=== PATIENT | male | born 1965 ===

== ENCOUNTER 2018-06-02 16:38 | Inpatient (IN) | payer OTHER ==
[~2018-06-02] VITALS: Ht 167.6 cm; Wt 86.2 kg
--- NOTE | 2018-06-02 17:00 | NUR ---
FYI: Sending facility information [facility] [address] [facility] [place]. [address]
[2018-06-02 17:08] LABS: BASOPHILS # (AUTO) 0.1 K/uL (0.0-8.0); BASOPHILS % (AUTO) 0.9 % (0.0-2.0); EOSINOPHILS # (AUTO) 0.1 K/uL (0.0-0.7); EOSINOPHILS % (AUTO) 1.9 % (0.0-7.0); HEMATOCRIT 39.6 % (36.7-47.1); HEMOGLOBIN 13.5 g/dL (12.5-16.3); LYMPHOCYTES # (AUTO) 2.5 K/uL (20.0-40.0); LYMPHOCYTES % (AUTO) 32.3 % (20.5-51.5); MEAN CORPUSCULAR HEMOGLOBIN 29.5 uug (23.8-33.4); MEAN CORPUSCULAR HGB CONC 34 g/dL (32.5-36.3); MEAN CORPUSCULAR VOLUME 86.8 fL (73.0-96.2); MONOCYTES # (AUTO) 0.6 K/uL (2.0-10.0); MONOCYTES % (AUTO) 8.1 % (0.0-11.0); NEUTROPHILS # (AUTO) 4.3 K/uL (1.8-8.9); NEUTROPHILS % (AUTO) 56.8 % (38.5-71.5); PLATELET COUNT (AUTO) 346 K/uL (152-348); RED BLOOD CELL COUNT(AUTO) 4.57 MIL/uL (4.06-5.63); WHITE BLOOD COUNT (AUTO) 7.6 K/uL (3.6-10.2)
[2018-06-02 17:17] LABS: CREATININE 0.8 mg/dL (0.6-1.3)
[2018-06-02 17:23] LABS: BILIRUBIN,DIRECT 0.1 mg/dL (0.0-0.2); BILIRUBIN,TOTAL 0.2 mg/dL (0.2-1.0); TOTAL PROTEIN, SERUM 7.7 g/dL (6.4-8.2)
--- NOTE | 2018-06-02 18:25 | NUR ---
Pt trans to m/s floor, NAD noted.
[2018-06-02 18:35] VITALS: BP 111/58
--- NOTE | 2018-06-02 19:00 | NUR ---
Patient has no IV because he is here for placement only. DW Charge Nurse. No IVF ordered.
--- NOTE | 2018-06-02 19:30 | NUR ---
Received laying comfortably in bed. No acute distress noted. A/O x 4. Hyperverbal. Patient is on room air. Denies pain or SOB. correction assessment done. Noted closed old heeled wound on the left outer armpit, left Noted left buttock redness and open wound. Pictures are in the chart. Wound care provided; applied hydrogel and mepilex on the sacral would. Noted scratches on bilateral lower extremities because of "the bed at the [facility]". Patient is paraplegic but able to turn and reposition herself. Noted pitting 2+ edema on bilateral foot. Safety initiated. Call light within reach.
[2018-06-02 20:00] VITALS: BP 122/82
[2018-06-02] MEDS ORDERED: ONDANSETRON 4 MG/2 ML VIAL IV PRN (20:45)
[2018-06-02] MEDS ORDERED: ACETAMINOPHEN 325 MG TABLET PO PRN (20:45)
[2018-06-02] MEDS ORDERED: MAGNESIUM HYDROXIDE 30 ML LIQUID UDC PO PRN (20:45)
--- NOTE | 2018-06-02 20:45 | NUR ---
Dr. Durán at bedside.
[2018-06-02] MEDS: ALPRAZOLAM 0.5 MG TABLET PO PRN (22:21)
[2018-06-02] MEDS: DOCUSATE SODIUM 100 MG CAPSULE PO SCH (22:21)
[2018-06-02 23:27] LABS: *BILIRUBIN,URIN NEGATIVE (NEGATIVE); *BLOOD, URINE NEGATIVE (NEGATIVE); *CLARITY,URINE CLEAR (CLEAR); *COLOR,URINE YELLOW (YELLOW); *KETONES,URINE NEGATIVE (NEGATIVE); *PROTEIN,URINE NEGATIVE (NEGATIVE); *UROBILINOGEN,URINE 0.2 E.U./dl (NORMAL); LEUKOCYTE ESTERASE ,URINE TRACE (NEGATIVE); NITRITE, URINE NEGATIVE (NEGATIVE); UGLUCOSE NEGATIVE (NEGATIVE)
[2018-06-02 23:33] LABS: BACTERIA,URINE NONE SEEN /HPF (NONE SEEN); MUCUS,URINE FEW /LPF (0-FEW); RBC,URINE 0-3 /HPF (0-3); SQUAMOUS EPITHELIAL CELL,UR FEW /HPF (NONE SEEN); WBC,URINE 0-3 /HPF (0-3)
[2018-06-03] MEDS ORDERED: OMEP20CA10 PO (03:17)
[2018-06-03] MEDS ORDERED: METO25TA6 PO (03:25)
[2018-06-03] MEDS ORDERED: GEMF600T4 PO (03:25)
[2018-06-03] MEDS ORDERED: BUSP5TAB3 PO (03:25)
[2018-06-03 04:00] VITALS: BP 101/63
--- NOTE | 2018-06-03 05:36 | NUR ---
No changes t/o shift. Afebrile. Wound care provided. Turned and repositioned Q2H. Safety and comfort measures maintained t/o shift. Good urine output. All meds given as ordered. All needs met.
[2018-06-03 06:10] LABS: BASOPHILS # (AUTO) 0.1 K/uL (0.0-8.0); BASOPHILS % (AUTO) 1.3 % (0.0-2.0); EOSINOPHILS # (AUTO) 0.2 K/uL (0.0-0.7); EOSINOPHILS % (AUTO) 2.5 % (0.0-7.0); HEMOGLOBIN 12.8 g/dL (12.5-16.3); LYMPHOCYTES # (AUTO) 2.3 K/uL (20.0-40.0); LYMPHOCYTES % (AUTO) 32.2 % (20.5-51.5); MEAN CORPUSCULAR HEMOGLOBIN 28.8 uug (23.8-33.4); MEAN CORPUSCULAR HGB CONC 34 g/dL (32.5-36.3); MEAN CORPUSCULAR VOLUME 85.7 fL (73.0-96.2); MONOCYTES # (AUTO) 0.6 K/uL (2.0-10.0); MONOCYTES % (AUTO) 8.7 % (0.0-11.0); NEUTROPHILS # (AUTO) 3.9 K/uL (1.8-8.9); NEUTROPHILS % (AUTO) 55.3 % (38.5-71.5); PLATELET COUNT (AUTO) 319 K/uL (152-348); RED BLOOD CELL COUNT(AUTO) 4.44 MIL/uL (4.06-5.63); WHITE BLOOD COUNT (AUTO) 7.1 K/uL (3.6-10.2)
[2018-06-03] MEDS: PANTOPRAZOLE SODIUM 40 MG TABLET.DR PO SCH (06:18)
--- NOTE | 2018-06-03 06:19 | NUR ---
ANTHONY Cummings at bedside giving a bed bath. Will continue to monitor.
[2018-06-03 06:30] LABS: BILIRUBIN,TOTAL 0.3 mg/dL (0.2-1.0); CREATININE 0.7 mg/dL (0.6-1.3); MAGNESIUM 1.9 mg/dL (1.8-2.4); PHOSPHOROUS 3.7 mg/dL (2.5-4.9); POTASSIUM 3.9 mmol/L (3.5-5.1); TOTAL PROTEIN, SERUM 6.7 g/dL (6.4-8.2)
[2018-06-03 06:34] LABS: THYROID STIMULATING HORMONE 1.142 mIU/mL (0.358-3.740)
[2018-06-03] MEDS: MULTIVITAMINS,THERAPEUTIC TABLET PO SCH (10:35)
[2018-06-03] MEDS: GEMFIBROZIL 600 MG TABLET PO SCH ×2 (10:35→17:10)
[2018-06-03 11:34] VITALS: BP 101/67
--- NOTE | 2018-06-03 13:13 | NUR ---
WOUND CARE CONSULT: PT PRESENTS WITH MULTIPLE WOUNDS, PRESENT ON ADMISSION INCLUDING STAGE 3 ULCER TO LEFT BUTTOCK, SCARS TO LEFT LATERAL FOOT, BUTTOCKS AND LEGS, INTACT DEEP TISSUE INJURY TO RT LATERAL FOOT AND ANKLE, ESCHAR TO RT LATERAL CALF. HIPS TURNED OUT WITH SOME CONTRACTURES OF LOWER EXTREMITIES. ALL SKIN PROTECTION AND WOUND CARE RECOMMENDATIONS DISCUSSED WITH NURSING STAFF. FIRST STEP LOW AIRLOSS MATTRESS ORDERED. SURGICAL CONSULT RECOMMENDED. WILL SEE PRN. SHERIDAN IN AGREEMENT WITH PLAN OF CARE. Addendum: 06/03/18 at 1315 by AAYUSH DAVIDSON RN Amended: Links added.
[2018-06-03] MEDS ORDERED: Z GUARD REMEDY PASTE 57 GM TUBE TOP PRN (13:15)
--- NOTE | 2018-06-03 14:46 | NUR ---
Report given to oncoming nurse, patient in bed, no distress noted at this time, bed in low position, side rails upx2.
--- NOTE | 2018-06-03 14:51 | NUR ---
report given to oncoming nurse, patient in bed, no distress noted at this time, bed in low position, side rails up x2.
[2018-06-03 15:19] VITALS: BP 127/59
[2018-06-03] MEDS: METFORMIN HCL 500 MG TABLET PO SCH (17:11)
--- NOTE | 2018-06-03 18:48 | NUR ---
PATIENT NON-COMPLIANT WITH DM MEDICATIONS. SAYING HE NEVER TAKES METFORMIN AND THAT HE IS NOT DIABETIC. PATIENT IS STABLE. RESTING COMFORTABLY IN BED. VITAL SIGNS STABLE. A/OX4, ON BED REST AT THIS TIME. SAFETY MEASURES IMPLEMENTED.
[2018-06-03 19:51] VITALS: BP 135/62
[2018-06-03] MEDS: busPIRone 5 MG TABLET PO SCH (20:56)
[2018-06-03] MEDS: ATORVASTATIN 10 MG TABLET PO SCH (20:56)
[2018-06-03] MEDS: DOCUSATE SODIUM 100 MG CAPSULE PO SCH (20:59)
[2018-06-03] MEDS ORDERED: SIMVASTATIN 10 MG TABLET PO SCH (21:00)
[2018-06-03] MEDS: METOPROLOL TARTRATE 25 MG TABLET PO SCH (21:01)
[2018-06-03] MEDS: Z GUARD REMEDY PASTE 57 GM TUBE TOP SCH (21:06)
[2018-06-03] MEDS ORDERED: SILVER NITRATE APPLICATOR STICK EACH TP ONE (23:45)
--- NOTE | 2018-06-04 04:20 | NUR ---
NURSING NOTES Patient seen by BROOKS Olivarez last night; will have wound debridement today; consent has been signed and in chart; supplies being completed; denies any pain; continue to monitor; continue plan of care.
[2018-06-04 04:48] VITALS: BP 126/78
[2018-06-04] MEDS: PANTOPRAZOLE SODIUM 40 MG TABLET.DR PO SCH (07:00)
[2018-06-04] MEDS ORDERED: SILVER NITRATE APPLICATOR STICK EACH TP PRN (07:15)
--- NOTE | 2018-06-04 07:25 | NUR ---
PATIENT RESTING COMFORTABLY IN BED, STABLE CONDITION, NO SIGNS OF DISTRESS. BEDREST, AOX4. WILL BE GETTING DEBRIDEMENT ON SACRAL WOUND TODAY. NO IV-ACCESS DUE TO PATIENT REFUSAL. WILL CONTINUE TO MONITOR THROUGHOUT SHIFT. BED ALARM ON, CALL LIGHT WITHIN REACH OF PATIENT. SAFETY MEASURES IMPLEMENTED.
[2018-06-04] MEDS: METFORMIN HCL 500 MG TABLET PO SCH ×2 (08:00→17:00)
[2018-06-04] MEDS: GEMFIBROZIL 600 MG TABLET PO SCH ×2 (08:07→16:59)
[2018-06-04] MEDS: MULTIVITAMINS,THERAPEUTIC TABLET PO SCH (08:07)
[2018-06-04] MEDS: Z GUARD REMEDY PASTE 57 GM TUBE TOP SCH ×2 (08:08→20:27)
[2018-06-04] MEDS: METOPROLOL TARTRATE 25 MG TABLET PO SCH ×2 (08:08→20:27)
[2018-06-04] MEDS ORDERED: SILVER NITRATE APPLICATOR STICK EACH TP ONE (09:00)
[2018-06-04 11:50] VITALS: BP 117/73
[2018-06-04 15:56] VITALS: BP 141/80
[2018-06-04] MEDS: PROTEIN SUPPLEMENT (PROSTAT) 30 ML LIQUID PO SCH (17:03)
[2018-06-04] MEDS: ASCORBIC ACID 500 MG TABLET PO SCH (17:03)
[2018-06-04] MEDS: ZINC SULFATE 220 MG CAPSULE PO SCH (17:03)
[2018-06-04] MEDS: HYDROCODONE/APAP 5-325MG TABLET PO PRN (18:47)
[2018-06-04 19:25] VITALS: BP 127/71
[2018-06-04] MEDS: DOCUSATE SODIUM 100 MG CAPSULE PO SCH (20:26)
[2018-06-04] MEDS: ATORVASTATIN 10 MG TABLET PO SCH (20:26)
[2018-06-04] MEDS: busPIRone 5 MG TABLET PO SCH (20:27)
[2018-06-04] MEDS: ALPRAZOLAM 0.5 MG TABLET PO PRN (23:19)
[2018-06-05 03:13] VITALS: BP 107/70
--- NOTE | 2018-06-05 06:06 | NUR ---
PATIENT ASLEEP IN BED. SLEPT WELL THROUGHOUT THE NIGHT. NO S/S OF PAIN OR DISCOMFORT. NO RESP. DISTRESS NOTED. VSS. CALL LIGHT IN REACH. ALL NEEDS ATTENDED. WILL CONTINUE TO MONITOR.
[2018-06-05] MEDS: PANTOPRAZOLE SODIUM 40 MG TABLET.DR PO SCH (06:17)
--- NOTE | 2018-06-05 07:06 | NUR ---
PATIENT RESTING COMFORTABLY IN BED, NO SIGNS OF DISTRESS. STABLE CONDITION. POSSIBLE D[facility] TODAY TO [facility]. BEDREST, A/OX4. BED ALARM ON, CALL LIGHT WITHIN REACH OF PATIENT. SAFETY MEASURES IMPLEMENTED.
[2018-06-05] MEDS: METFORMIN HCL 500 MG TABLET PO SCH ×2 (08:00→18:00)
[2018-06-05] MEDS: PROTEIN SUPPLEMENT (PROSTAT) 30 ML LIQUID PO SCH (08:11)
[2018-06-05] MEDS: ASCORBIC ACID 500 MG TABLET PO SCH (08:11)
[2018-06-05] MEDS: MULTIVITAMINS,THERAPEUTIC TABLET PO SCH (08:11)
[2018-06-05] MEDS: ZINC SULFATE 220 MG CAPSULE PO SCH (08:11)
[2018-06-05] MEDS: METOPROLOL TARTRATE 25 MG TABLET PO SCH (08:11)
[2018-06-05] MEDS: GEMFIBROZIL 600 MG TABLET PO SCH ×2 (08:11→18:33)
[2018-06-05] MEDS: Z GUARD REMEDY PASTE 57 GM TUBE TOP SCH (08:12)
[2018-06-05] MEDS ORDERED: CYANOCOBALAMIN 1000 MCG/ML VIAL IM SCH (09:00)
[2018-06-05 11:16] VITALS: BP 99/74
[2018-06-05 15:06] VITALS: BP 111/65
[2018-06-05] MEDS: HYDROCODONE/APAP 5-325MG TABLET PO PRN (15:38)
[2018-06-05] MEDS ORDERED: ALPR0.5T PO (16:12)
[2018-06-05] MEDS ORDERED: ACET325T53 PO (16:12)
[2018-06-05] MEDS ORDERED: METF-440 PO (16:12)
[2018-06-05] MEDS ORDERED: MENT71OI TOP ×2 (16:12)
[2018-06-05] MEDS ORDERED: PROT30LI PO (16:12)
[2018-06-05] MEDS ORDERED: ATOR10TA PO (16:12)
[2018-06-05] MEDS ORDERED: ASCO500T9 PO (16:12)
[2018-06-05] MEDS ORDERED: MULT-24 PO (16:12)
[2018-06-05] MEDS ORDERED: HYDR-3326 PO (16:12)
[2018-06-05] MEDS ORDERED: ZINC220C8 PO (16:12)
[2018-06-05] MEDS ORDERED: CYAN10006 IM (16:12)
[2018-06-05] MEDS ORDERED: LISI2.5T2 PO (16:12)
[2018-06-05] MEDS ORDERED: MAGN400O6 PO (16:12)
[2018-06-05] MEDS ORDERED: DOCU100C36 PO (16:12)
[2018-06-05] MEDS ORDERED: FAMO-132 PO (16:12)
--- NOTE | 2018-06-05 19:08 | NUR ---
PATIENT SUPPOSED TO BE DISCHARGED AT 1830 AND PICKED UP BY AMBULANCE TO BE TRANSFERRED TO [facility]. REPORT GIVEN TO [facility] NURSE. REPORT GIVEN TO [facility]. DISCHARGE PACKET COMPLETED AND SIGNED BY PATIENT. NO IV-ACCESS. ID-BAND TAKEN OFF. [employer] CHECKLIST RETURNED, INCLUDING PATIENT'S WHEEL CHAIR, WHEEL-CHAIR PAD, WHEEL-CHAIR LEGS, PATIENT'S PERSONAL BLUE PILLOW, ALONG EVERYTHING ELSE CHECKED OFF ON BELONGINGS CHECKLIST. STABLE CONDITION, NO SIGNS OF DISTRESS. WOUND CARE PROVIDED, SKIN CARE PROVIDED, TURNED AND REPOSITIONED. +
== END 2018-06-05 19:25 | DRG 361 ==
LOC: ER 16:41 → MED 18:08
PROVIDERS: ADMIT Internal Medicine; ATTEND Internal Medicine
PROC: 0JB90ZZ Excision of Buttock Subcutaneous Tissue and Fascia, Open Approach (ICD-10-PCS; principal; 2018-06-04)
PROC: 0HBKXZZ Excision of Right Lower Leg Skin, External Approach (ICD-10-PCS; principal; 2018-06-04)
DX: L89.323 Pressure ulcer of left buttock, stage 3 (principal); D68.59 Other primary thrombophilia; G82.20 Paraplegia, unspecified; E11.65 Type 2 diabetes mellitus with hyperglycemia; S81.801A Unspecified open wound, right lower leg, initial encounter; Z99.3 Dependence on wheelchair; M16.0 Bilateral primary osteoarthritis of hip; E78.5 Hyperlipidemia, unspecified; K21.9 Gastro-esophageal reflux disease without esophagitis; Z87.891 Personal history of nicotine dependence; M50.322 Other cervical disc degeneration at C5-C6 level; M51.36 Other intervertebral disc degeneration, lumbar region; M47.812 Spondylosis without myelopathy or radiculopathy, cervical region; M47.816 Spondylosis without myelopathy or radiculopathy, lumbar region; E53.8 Deficiency of other specified B group vitamins; E66.9 Obesity, unspecified; Z68.30 Body mass index [BMI] 30.0-30.9, adult; Z71.3 Dietary counseling and surveillance; X58.XXXA Exposure to other specified factors, initial encounter; Y92.098 Other place in other non-institutional residence as the place of occurrence of the external cause; I10 Essential (primary) hypertension; Z87.828 Personal history of other (healed) physical injury and trauma; W22.8XXA Striking against or struck by other objects, initial encounter; R53.81 Other malaise
CPT/HCPCS: 36415; 72125; 72131; 73502; 82652; 83550; 83690; 83735; 84100; 84443; 85025; 97110; A4217; A4663; G0378; J3420